=== PATIENT | female | born 1945 | race Caucasian/White ===

== ENCOUNTER 2022-04-25 08:04 | Emergency (ER) | payer OTHER, MEDICARE ==
[2022-04-25 08:32] VITALS: BP 135/69; PULSE 80; TEMP 98; BMI 26.4
== END 2022-04-25 10:06 | disposition home or self-care (01) ==
LOC: JER 08:04 → JERFT 08:04
DX: S52.502A Unspecified fracture of the lower end of left radius, initial encounter for closed fracture (principal); W01.0XXA Fall on same level from slipping, tripping and stumbling without subsequent striking against object, initial encounter
CPT/HCPCS: 73110-TC-LT-FY; 73130-TC-LT-FY; 99283-25

== ENCOUNTER 2022-04-30 06:41 | Day surgery (SDC) | payer OTHER, MEDICARE ==
[2022-04-28 11:57] VITALS: BMI 26.4
[2022-04-30] MEDS ORDERED: MIDAZOLAM HCL 2 MG/2 ML SINGLE DOSE VIAL ONE (07:27)
[2022-04-30] MEDS ORDERED: PROPOFOL 20 ML ONE ×2 (07:28→09:40)
[2022-04-30] MEDS ORDERED: ROPIVACAINE HCL 0.5% 30ML VIAL ONE (07:33)
[2022-04-30] MEDS ORDERED: ceFAZolin SODIUM 1 GM VIAL ONE (09:40)
[2022-04-30] MEDS ORDERED: DEXAMETHASONE SOD PHOSPHATE 4 MG/1 ML VIAL ONE (09:40)
[2022-04-30] MEDS ORDERED: ONDANSETRON 4 MG/2 ML VIAL ONE (09:40)
[2022-04-30] MEDS ORDERED: oxyCODONE HCL 5 MG TABLET PO PRN (11:02)
[2022-04-30] MEDS ORDERED: ONDANSETRON 4 MG/2 ML VIAL IVPUSH PRN (11:02)
[2022-04-30] MEDS ORDERED: PROMETHAZINE HCL 25 MG/1 ML VIAL IVPUSH PRN (11:02)
[2022-04-30] MEDS ORDERED: hydrALAZINE HCL 20 MG/ML VIAL IVPUSH PRN (11:06)
[2022-04-30] MEDS ORDERED: LACTATED RINGERS SOLUTION 1,000 ML IV SCH (11:15)
[2022-04-30 12:41] VITALS: TEMP 98
[2022-04-30 13:00] VITALS: BP 142/72; PULSE 60
== END 2022-04-30 12:55 | disposition home or self-care (01) ==
LOC: FASU 06:41
PROVIDERS: ATTEND Orthopaedic Surgery
PROC: 0LN60ZZ Release Left Lower Arm and Wrist Tendon, Open Approach (ICD-10-PCS; 2022-04-30)
PROC: 0PSJ04Z Reposition Left Radius with Internal Fixation Device, Open Approach (ICD-10-PCS; principal; 2022-04-30 09:47)
DX: S52.572A Other intraarticular fracture of lower end of left radius, initial encounter for closed fracture (principal); W19.XXXA Unspecified fall, initial encounter; Y93.9 Activity, unspecified; Y92.9 Unspecified place or not applicable
CPT/HCPCS: 25290; 25609; C1713; 73110-TC-LT-FY; 94760

== ENCOUNTER 2023-08-21 10:35 | Emergency (ER) | payer OTHER, MEDICARE ==
[2023-08-21] MEDS ORDERED: ACETAMINOPHEN 500 MG TABLET (FP) PO ONE (11:06)
[2023-08-21 11:10] VITALS: BP 142/73; PULSE 75; RESP 18; TEMP 99; BMI 27.1
[2023-08-21] MEDS ORDERED: ACETAMINOPHEN 500 MG TABLET (FP) ONE (11:10)
== END 2023-08-21 14:19 | disposition home or self-care (01) ==
LOC: SUPCPDRO 10:35 → FER 10:35
DX: M25.561 Pain in right knee (principal); M25.562 Pain in left knee; W22.8XXA Striking against or struck by other objects, initial encounter; W01.0XXA Fall on same level from slipping, tripping and stumbling without subsequent striking against object, initial encounter
CPT/HCPCS: 73502-TC-LT-FY; 73502-TC-RT-FY; 73562-TC-LT-FY; 73562-TC-RT-FY; 73590-TC-LT-FY; 73590-TC-RT-FY; 99284-25